=== PATIENT | female | born 1985 | race Caucasian/White ===

== ENCOUNTER 2022-12-21 04:55 | Emergency (ER) | payer MEDICAID ==
[~2022-12-21] VITALS: Ht 152.4 cm; Wt 75.7 kg
[2022-12-21 04:55] VITALS: BP 120/71; PULSE 102; RESP 17; TEMP 97.7; O2SAT 99
[2022-12-21 05:05] VITALS: BP 120/71; PULSE 102; RESP 17; TEMP 97.7; O2SAT 99
[2022-12-21] MEDS ORDERED: ALPR0.5T2 PO (06:35)
== END 2022-12-21 06:53 | disposition home or self-care (01) ==
LOC: MED 04:55
DX: F41.9 Anxiety disorder, unspecified (principal); R07.9 Chest pain, unspecified; G44.209 Tension-type headache, unspecified, not intractable; Z79.899 Other long term (current) drug therapy
CPT/HCPCS: 93005; 99283